=== PATIENT | male | born 1980 | race African-American/Black ===

== ENCOUNTER 2017-07-22 20:35 | Emergency (ER) | payer OTHER ==
[~2017-07-22] VITALS: Ht 182.9 cm; Wt 104.0 kg
[2017-07-22 20:39] VITALS: Ht 182.9 cm; Wt 104.0 kg
--- NOTE | 2017-07-22 22:12 | ERD ---
ER Documentation Chief Complaint Date/Time DATE: 07/22/17 TIME: 22:11 Chief Complaint FREQUENT URINATION STARTED TODAY, DENIES PAIN OR BURNING SENSATION HPI 36-year-old male patient presents to emergency department with complaint of urinary frequency, fatigue and unprotected sex 2 weeks ago. denies dysuria, hematuria, d/c, ulcers or lesions ROS All systems reviewed and are negative except as per history of present illness. Medications Home Meds Active Scripts Doxycycline Hyclate* (Doxycycline Hyclate*) 100 Mg Tablet.dr, 100 MG PO BID for 10 Days, TAB Prov:LITA GIFFORD 07/22/17 Allergies Allergies: Coded Allergies: No Known Allergy (Unverified , 07/22/17) PMhx/Soc Medical and Surgical Hx: pt denies Medical Hx, pt denies Surgical Hx History of Surgery: No Anesthesia Reaction: No Hx Neurological Disorder: No Hx Respiratory Disorders: No Hx Cardiac Disorders: No Hx Psychiatric Problems: No Hx Miscellaneous Medical Probl: No Hx Alcohol Use: No Hx Substance Use: No Hx Tobacco Use: No Smoking Status: Never smoker Physical Exam Vitals No stable, triage notes reviewed Physical Exam Const: Nourished well-appearing well-hydrated no acute Head: Atraumatic Eyes: Normal Conjunctiva PERRLA, EOMI ENT: Neck: Resp: Cardio: Abd: Soft, non tender, non distended. CVA tenderness no bladder tenderness Skin: Back: Ext: Neur: Awake and alert Psych: Normal Mood and Affect Results 24 hrs Laboratory Tests Test 07/22/17 21:24 07/22/17 22:28 Chlamydia trachomatis RNA (TMA) NOT DETECTED Chlamydia/GC Comment SEE NOTE Neisseria gonorrhoeae RNA (TMA) NOT DETECTED Bedside Urine pH (LAB) 7.0 Bedside Urine Protein (LAB) Negative Bedside Urine Glucose (UA) Negative Bedside Urine Ketones (LAB) Negative Bedside Urine Blood Negative Bedside Urine Nitrite (LAB) Negative Bedside Urine Leukocyte Esterase (L Negative Current Medications Medications (Trade) Dose Ordered Sig/Roel Route PRN Reason Start Time Stop Time Status Last Admin Dose Admin Ceftriaxone Sodium (Rocephin) 250 mg ONCE ONCE IM 07/23/17 00:00 07/23/17 00:01 DC 07/22/17 23:40 Azithromycin (Zithromax) 1,000 mg ONCE ONCE PO 07/23/17 00:00 07/23/17 00:01 DC 07/22/17 23:40 Urinalysis negative for evidence of infection no leukocytosis, nitrates, or microscopic hematuria Procedures/MDM This 36-year-old male patient presents to the emergency department today for frequency of urination, fatigue, patient denies any dysuria urgency. Patient denies discharge ulcers or lesions, reports that he had unprotected sex 2 weeks ago is fearful of a sexually transmitted infection. Today's emergency room course includes a urinalysis which is negative for evidence of infection, negative for leukocytosis, nitrates, or microscopic hematuria. Negative for evidence of her glucose anemia, no glucose in urine. Patient will be treated prophylactically for gonorrhea and chlamydial infection with 250 mg of Rocephin , 1000 mg of azithromycin, sent home on doxycycline. Safe sex practices discussed. Increase fluids, increase rest, obtained from sexual activity until results of gonorrhea and Chlamydia tests returns in 3 days, this was a urine test sent to outside lab. Patient is stable with no new complaints during ER course, clinically there is no current evidence to suggest acute abdomen, tract infection, pyelonephritis or any other emergent condition appearing to require further evaluation or hospitalization. I feel the patient is stable for discharge at this time. I have discussed results, examination findings, the treatment plan with the patient and family present prior to discharge. Indications for emergent reevaluation, side effects of medication were also discussed. All questions were answered. Patient verbalizes understanding and agrees with plan of care. Departure Diagnosis: Primary Impression: STI (sexually transmitted infection) Condition: Good Patient Instructions: What Are Sexually Transmitted Diseases (STDs)? Referrals: [facility] Additional Instructions: Thank you for for coming to [facility] for your care today. Please ask your nurse or provider if you have questions about your care today and do not leave until all your questions have been answered. Please use any medications given as directed and follow-up with your doctor (or the doctor you were referred to) in the next 2-3 days. If you do not have a primary care doctor you may follow up at the [facility] (listed below). You may also use motrin and tylenol as needed for fever and/or pain unless instructed otherwise by your provider or nurse. Indications for more urgent follow-up have been discussed, but you may return to the Emergency Department at ANY time for any worrisome or worsening symptoms. If you have abdominal pain, please know that no test or exam you received is perfect and you should follow up within 8 hours for continued pain. If you had any imaging studies today, such as an X-Ray or CT Scan, these studies will be reviewed later by a radiologist. You will be called if there are important findings that were not identified today, so make sure the contact information you provided at registration is correct. If you received any narcotic pain control medicine today, such as Vicodin, Morphine or Dilaudid, your coordination and judgment may be affected for a number of hours. Please do not drive or operate heavy machinery, and you may want someone to assist you at home. If you were given a prescription for narcotic medication, be aware that it is very addictive- use sparingly and only if necessary. LITA GIFFORD Jul 22, 2017 22:12
[2017-07-22 22:21] LABS: URINE BLOOD (Dip) POC Negative (NEGATIVE)
[2017-07-22] MEDS ORDERED: DOXY100T20 PO (23:40)
[2017-07-23] MEDS ORDERED: CEFTRIAXONE 250 MG INJ IM ONE
[2017-07-23] MEDS ORDERED: AZITHROMYCIN 250 MG TAB PO ONE
== END 2017-07-22 23:55 | disposition home or self-care (01) ==
LOC: FTE 20:35
DX: A64 Unspecified sexually transmitted disease (principal)
CPT/HCPCS: 81003; 87591; 96372; J0696; Z7502; Z7610

== ENCOUNTER 2017-10-26 08:27 | Emergency (ER) | payer OTHER ==
[~2017-10-26] VITALS: Ht 182.9 cm; Wt 105.6 kg
[~2017-10-26 08:27] MED LIST: DOXY100T20 PO
[2017-10-26 08:31] VITALS: Ht 182.9 cm; Wt 105.6 kg
--- NOTE | 2017-10-26 08:48 | ERD ---
ER Documentation Chief Complaint Chief Complaint Pt with c/o weakness X 2 weeks. HPI This is a 37-year-old male who presents the emergency department today complaining of weakness and decreased energy for the past 2 weeks. States that he recently started having some night sweats and was concerned. Denies any fevers or chills, cough, sore throat, abdominal pain. States he also has some tightness on the underside of his left arm and he does not know if he has a swollen lymph node. 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 Dates that he recently moved to the area. Denies any chest pain, cough sore throat, headache shortness of breath. ROS All systems reviewed and are negative except as per history of present illness. Medications Home Meds Active Scripts Doxycycline Hyclate* (Doxycycline Hyclate*) 100 Mg Tablet.dr, 100 MG PO BID for 10 Days, TAB Prov:LITA GIFFORD 07/22/17 Allergies Allergies: Coded Allergies: No Known Allergy (Unverified , 07/22/17) PMhx/Soc History of Surgery: No Anesthesia Reaction: No Hx Neurological Disorder: No Hx Respiratory Disorders: No Hx Cardiac Disorders: No Hx Psychiatric Problems: No Hx Miscellaneous Medical Probl: No Hx Alcohol Use: No Hx Substance Use: No Hx Tobacco Use: No Physical Exam Vitals Vital Signs Date Time Temp Pulse Resp B/P Pulse Ox O2 Delivery O2 Flow Rate FiO2 10/26/17 08:31 97.5 99 20 149/93 100 Physical Exam Const: NAD Head: Atraumatic Eyes: Normal Conjunctiva ENT: Normal External Ears, Nose and Mouth. Neck: Full range of motion..~ No meningismus. Resp: Clear to auscultation bilaterally Cardio: Regular rate and rhythm, no murmurs Abd: Soft, non tender, non distended. Normal bowel sounds Skin: No petechiae or rashes Back: No midline or flank tenderness Ext: No cyanosis, or edema. Left arm symmetrical with right arm. Full active range of motion. No evidence of masses or enlarged lymph nodes. Pulses 2+. Distal neurovascularly intact. Neur: Awake and alert Psych: Normal Mood and Affect Result Diagram: 10/26/17 0855 10/26/17 0855 Results 24 hrs Laboratory Tests Test 10/26/17 08:55 White Blood Count 6.510^3/ul Red Blood Count 6.5110^6/ul Hemoglobin 14.3g/dl Hematocrit 46.0% Mean Corpuscular Volume 70.7fl Mean Corpuscular Hemoglobin 22.0pg Mean Corpuscular Hemoglobin Concent 31.1g/dl Red Cell Distribution Width 15.7% Platelet Count 52321^3/UL Mean Platelet Volume 9.4fl Neutrophils % 63.4% Lymphocytes % 21.2% Monocytes % 11.2% Eosinophils % 3.4% Basophils % 0.6% Nucleated Red Blood Cells % 0.0/100WBC Neutrophils # 4.110^3/ul Lymphocytes # 1.410^3/ul Monocytes # 0.710^3/ul Eosinophils # 0.210^3/ul Basophils # 0.010^3/ul Nucleated Red Blood Cells # 0.010^3/ul Sodium Level 141mmol/L Potassium Level 4.4mmol/L Chloride Level 103mmol/L Carbon Dioxide Level 27mmol/L Anion Gap 15 Blood Urea Nitrogen 17mg/dl Creatinine 1.28mg/dl Glucose Level 94mg/dl Calcium Level 9.2mg/dl Total Bilirubin 0.8mg/dl Direct Bilirubin 0.00mg/dl Indirect Bilirubin 0.8mg/dl Aspartate Amino Transf (AST/SGOT) 33IU/L Alanine Aminotransferase (ALT/SGPT) 50IU/L Alkaline Phosphatase 66IU/L Total Protein 7.5g/dl Albumin 4.2g/dl Globulin 3.30g/dl Albumin/Globulin Ratio 1.27 Procedures/MDM This an strangely well-appearing 37-year-old male who presents the emergency department today for decreased energy and some weakness and night sweats. Patient states he was concerned because the night sweats. Patients physical exam is benign. He is laughing and smiling in the exam room. Patient denies any chest pain or shortness of breath and do not feel he requires a cardiac workup at this time. He did obtain basic laboratory work. Laboratory work shows no elevated white blood cell count. His hemoglobin is within normal limits. Platelets are within normal limits. Electrolytes are within normal limits. Glucose is within normal limits. Liver enzymes are within normal limits. Creatinine is mildly elevated at 1.28. His BUN is normal. Patient did endorse taking protein supplements. I have instructed patient to stop using those to improve his kidney function. Patient was complaining of some left arm tightness. His physical exam is benign and he has good active range of motion. His distal pulses are equal bilaterally. Patient has well-developed pectoral and arm musculature and does lift weights on a daily basis. I have low suspicion for mass, vaginitis or lymphangitis. Low suspicion for DVT. Do not feel the patient requires an ultrasound Low suspicion for sepsis or severe acute bacterial cause or rhabdomyolysis as cause of decreased energy and weakness. Patient denied any other symptoms such as cough sore throat or flulike symptoms. He was given a copy of his laboratory work and was instructed to follow-up with his primary care doctor for repeat labs. Patient does not have a primary doctor and he is new to the area. He was given a list of community resources. At this time the patient is stable for discharge and outpatient management. Patient should follow up with their PCP in the next 1-2 days. They may return to the emergency department sooner for any persistent or worsening of symptoms. Patient understood and agreed with the plan. Discussed the patient with Dr. Dale and he is in agreement with the plan. Departure Diagnosis: Primary Impression: Decreased energy Condition: Fair GARCÍA PAL PA-C Oct 26, 2017 08:48
[2017-10-26 09:07] LABS: BASOPHILS % 0.6 % (0.0-2.0); EOSINOPHILS # 0.2 10^3/ul (0.0-0.5); EOSINOPHILS % 3.4 % (0.0-7.0); HEMOGLOBIN 14.3 g/dl (14.0-18.0); LYMPHOCYTES # 1.4 10^3/ul (0.8-2.9); LYMPHOCYTES % 21.2 % (15.0-51.0); MEAN CORPUSCULAR HGB CONC 31.1 g/dl (32.0-37.0); MEAN CORPUSCULAR VOLUME 70.7 fl (82.0-101.0); MEAN PLATELET VOLUME 9.4 fl (7.4-10.4); MONOCYTE # 0.7 10^3/ul (0.3-0.9); MONOCYTES % 11.2 % (0.0-11.0); NEUTROPHIL # 4.1 10^3/ul (1.6-7.5); NEUTROPHILS % 63.4 % (39.0-77.0); PLATELET COUNT 254 10^3/UL (140-415); RED BLOOD COUNT 6.51 10^6/ul (4.70-6.10); RED CELL DISTRIBUTION WIDTH 15.7 % (11.5-14.5); WHITE BLOOD COUNT 6.5 10^3/ul (4.8-10.8)
[2017-10-26 09:30] LABS: ALBUMIN 4.2 g/dl (3.3-4.9); ALBUMIN/GLOBULIN RATIO 1.27; BILIRUBIN,INDIRECT 0.8 mg/dl (0-1.1); BILIRUBIN,TOTAL 0.8 mg/dl (0.2-1.3); CALCIUM 9.2 mg/dl (8.4-10.2); CREATININE 1.28 mg/dl (0.61-1.24); POTASSIUM 4.4 mmol/L (3.5-5.1); TOTAL PROTEIN 7.5 g/dl (6.1-8.1)
[2017-10-26 10:40] VITALS: BP 135/88; PULSE 66; RESP 18; TEMP 97.5
== END 2017-10-26 10:30 | disposition home or self-care (01) ==
LOC: FTE 08:27
DX: R53.83 Other fatigue (principal)
CPT/HCPCS: 80053; 85025; Z7502; 99283

== ENCOUNTER 2018-02-02 07:42 | Emergency (ER) | END 2018-02-02 12:00 | disposition home or self-care (01) ==

== ENCOUNTER 2018-08-14 10:13 | Emergency (ER) | END 2018-08-14 11:32 | disposition home or self-care (01) ==